=== PATIENT | female | born 1990 | race Caucasian/White ===

== ENCOUNTER 2016-11-13 08:52 | Inpatient (IN) | payer OTHER ==
--- NOTE | ~2016-11-13 | OR ---
Unit #: [id number] #: [id number] Patient: JAMIE LANDEROS [id number] [address] [address] [id number] I MR#: [id number] NAME: JAMIE LANDEROS ROOM: [facility] Date of Procedure: 11/13/2016 Admission Date: 11/13/2016 Surgeon: Brandi Callahan M.D. : 1990 Attending Physician: Luz Gee M.D. Primary Care Physician: No Primary Care Physician PROCEDURE OPERATIVE NOTE PROCEDURE PERFORMED Right subclavian central venous catheter placement. INDICATION Shock. DETAILS OF THE PROCEDURE After preparing the patient with the ChloraPrep in a sterile (1) fashion, a triple lumen central venous catheter inserted in the right subclavian vein with modified Seldinger technique. Guidewire was removed. In total, all three ports were flushed and working. No complication happened. Dictated by... Maria Luisa Cortez/baljinder TD: 11/13/2016 17:38 JOB #: [id number] PROCEDURE OPERATIVE NOTE Page 1 of 1 X Brandi Callahan MD X PROCEDURE OPERATIVE NOTE
--- NOTE | ~2016-11-13 | CR7 ---
[facility] A Service of [facility] & [facility] RADIOLOGY TEXT RESULTS PATIENT: JAMIE LANDEROS LOCATION: [address] : [birth year] UNIT #: [id number] AGE: [address]: Luz Gee MD SEX: F ORDER DR: [id number] [facility] [address] [facility]. [place], [place] [address] [id number] I MR#: [id number] Acc #: [id number] NAME: JAMIE LANDEROS : 1990 SEX: F STUDY DATE/TIME: 11/16/2016 13:05 UNIT: [facility] ROOM: [facility] STUDY DESCRIPTION: CR Abdomen Single AP View Attending Physician: Lzu Gee M.D. Ordering Physician: Brandi Callahan M.D. Primary Care Physician: Primary Care Physician No MEDICAL IMAGING REPORT This report is preliminary unless electronic signature is present EXAM Portable KUB HISTORY Dobbhoff tube placed. TECHNIQUE A single view of the abdomen was obtained. FINDINGS The Dobbhoff tube seen with tip in good position. The upper to mid stomach. Bowel gas pattern is normal STAT * RESULT Dictated by... Fidel Mojica M.D. THIS IS AN ELECTRONICALLY VERIFIED REPORT Fidel Mojica M.D. at 11/16/2016 5:02 PM AURORA/shelly TD: 11/16/2016 13:48 JOB #: [id number] MEDICAL IMAGING REPORT Page 1 of 1 COPY
--- NOTE | ~2016-11-13 | OR ---
Unit #: [id number] #: [id number] Patient: JAMIE LANDEROS [id number] [address] [address] [id number] I MR#: [id number] NAME: JAMIE LANDEROS ROOM: [facility] Date of Procedure: 11/15/2016 Admission Date: 11/13/2016 Surgeon: Brandi Callahan M.D. : 1990 Attending Physician: Luz Gee M.D. PROCEDURE OPERATIVE NOTE PROCEDURE PERFORMED Bronchoscopy and bronchoalveolar lavage. INDICATION Pneumonia. PREPROCEDURE DIAGNOSIS Pneumonia. POSTPROCEDURE DIAGNOSIS Pneumonia. DETAILS OF THE PROCEDURE After taking consent from the patient's family and explaining the risks and benefits, patient was placed in a proper position. The bronchoscope was introduced through the endotracheal tube which was sitting well above the edwin. We examined the right upper, right middle, right lower lobe, left upper lobe, lingula, and left lower lobe. No endobronchial lesion was found. There were thick mucoid secretions in both lungs which were therapeutically suctioned. Then, we did a bronchoalveolar lavage in the right lower lobe area with 100 mL saline in and 20 mL retrieved. Patient tolerated the procedure very well. No complication happened. Dictated by... Maria Luisa Cortez TD: 11/15/2016 15:13 JOB #: [id number] PROCEDURE OPERATIVE NOTE Page 1 of 1 X Barndi Callahan MD X PROCEDURE OPERATIVE NOTE
--- NOTE | ~2016-11-13 | CR72 ---
[facility] A Service of [facility] RADIOLOGY TEXT RESULTS PATIENT: JAMIE LANDEROS [facility] [birth year] UNIT #: [id number] AGE: [address]: Luz Gee MD SEX: F ORDER DR: [id number] [facility] [address] [place], [place] [address] [id number] I MR#: [id number] Acc #: [id number] NAME: JAMIE LANDEROS : 1990 SEX: F STUDY DATE/TIME: 11/14/2016 23:07 UNIT: [facility] ROOM: [facility] STUDY DESCRIPTION: CR Chest Single View Portable Attending Physician: Luz Gee M.D. Ordering Physician: Luz Gee M.D. Primary Care Physician: Primary Care Physician No MEDICAL IMAGING REPORT This report is preliminary unless electronic signature is present EXAM AP portable chest, 11/14/2016 (2307 hours) HISTORY Respiratory failure. Endotracheal tube placement. TECHNIQUE AP portable chest x-ray. FINDINGS Newly placed endotracheal tube tip is in good position in the mid thoracic trachea about 4.4 cm above the edwin. Right subclavian central line tip in the low SVC. Very dense diffuse alveolar opacity throughout both lungs suggesting diffuse pneumonitis, pulmonary edema and/or ARDS. A right chest tube is in place, but the side hole appears extrathoracic. No visible pneumothorax. Soft tissue emphysema in the right chest wall. Median sternotomy. IMPRESSION 1. ETT in good position. 2. Partially withdrawn right chest tube. No visible pneumothorax. 3. Dense diffuse airspace opacity throughout both lungs. STAT * RESULT Dictated by... Jay Hamilton M.D. [facility] A Service of [facility] RADIOLOGY TEXT RESULTS PATIENT: JAMIE LANDEROS [facility]ATION: [facility] [birth year] UNIT #: [id number] AGE: [address]: Luz Gee MD SEX: F ORDER DR: THIS IS AN ELECTRONICALLY VERIFIED REPORT Jay Hamilton M.D. at 11/15/2016 4:05 AM Perla TD: 11/14/2016 23:32 JOB #: [id number] MEDICAL IMAGING REPORT Page 1 of 1 COPY
--- NOTE | ~2016-11-13 | US80 ---
[facility] A Service of [facility] RADIOLOGY TEXT RESULTS PATIENT: JAMIE LANDEROS LOCATION: [facility] : [birth year] UNIT #: [id number] AGE: [address]: Luz Gee MD SEX: F ORDER DR: [id number] [place], [place] [address] [id number] I MR#: [id number] Acc #: [id number] NAME: JAMIE LANDEROS : 1990 SEX: F STUDY DATE/TIME: 11/16/2016 18:26 [facility]: [facility] STUDY DESCRIPTION: US Kidney Unilateral Complete Attending Physician: Luz Gee M.D. Ordering Physician: Luz Gee M.D. Primary Care Physician: No Primary Care Physician MEDICAL IMAGING REPORT This report is preliminary unless electronic signature is present EXAM Renal ultrasound, bilateral. DATE OF EXAM 11/16/2016 INDICATIONS Low urine output. Acute renal injury. BUN 38, creatinine 1.4, GFR 52, overdose patient. TECHNIQUE Sonographic imaging of the kidneys was performed bilaterally. COMPARISON No comparisons. FINDINGS There is free fluid adjacent to the right kidney and tracking into the pelvis. The right kidney measures 11.2 x 4.4 x 5.0 cm and the left kidney 11.4 x 5.7 x 5.1 cm. There is no hydronephrosis on either side. No shadowing stones. Bladder decompressed by Che catheter. IMPRESSION 1. No hydronephrosis or shadowing stone on either side. 2. Ascites in the right upper quadrant and tracking into the pelvis. 3. Bladder decompressed by Che catheter. Dictated by... Jim Branham M.D. THIS IS AN ELECTRONICALLY VERIFIED REPORT Jim Branham M.D. at 11/16/2016 10:52 PM [facility] A Service [facility] RADIOLOGY TEXT RESULTS PATIENT: JAMIE LANDEROS LOCATION: [facility]-20 : [birth year] UNIT #: [id number] AGE: [address]: Luz Gee MD SEX: F ORDER DR: SHERRI/yulia TD: 11/16/2016 22:46 JOB #: [id number] MEDICAL IMAGING REPORT Page 1 of 1 COPY
--- NOTE | ~2016-11-13 | CR72 ---
[facility] A Service of [facility] RADIOLOGY TEXT RESULTS PATIENT: JAMIE LANDEROS LOCATION: [facility] [birth year] UNIT #: [id number] AGE: [address]: Luz Gee MD SEX: F ORDER DR: [id number] [id number] [place], [place] [address] [id number] I MR#: [id number] Acc #: [id number] NAME: JAMIE LANDEROS : 1990 SEX: F STUDY DATE/TIME: 11/15/2016 3:01 UNIT: [facility] ROOM: [facility] STUDY DESCRIPTION: CR Chest Single View Portable Attending Physician: Luz Gee M.D. Ordering Physician: Brandi Callahan M.D. Primary Care Physician: Primary Care Physician No MEDICAL IMAGING REPORT This report is preliminary unless electronic signature is present EXAM AP portable chest, 11/15/2016 HISTORY Respiratory failure. Follow up cardiopulmonary status. TECHNIQUE AP portable chest x-ray. FINDINGS Tip of the right chest tube has withdrawn from the thorax and is now positioned in the soft tissues of the right lateral chest wall. No visible pneumothorax. Very dense diffuse interstitial and alveolar opacity throughout both lungs may represent pulmonary edema, diffuse pneumonitis and/or ARDS. This is unchanged. Endotracheal tube and right subclavian central line remain in good position. IMPRESSION 1. Right side chest tube within the right chest wall. No pneumothorax. 2. No significant change since yesterday. STAT * RESULT Dictated by... Jay Hamilton M.D. [facility] A Service of [facility] RADIOLOGY TEXT RESULTS PATIENT: JAMIE LANDEROS LOCATION: [facility] [birth year] UNIT #: [id number] AGE: [address]: Luz Gee MD SEX: F ORDER DR: THIS IS AN ELECTRONICALLY VERIFIED REPORT Jay Hamilton M.D. at 11/15/2016 4:05 AM SHARI/leisa TD: 11/15/2016 03:45 JOB #: [id number] MEDICAL IMAGING REPORT Page 1 of 1 COPY
--- NOTE | ~2016-11-13 | CR72 ---
[facility] A Service of [facility] & [facility] RADIOLOGY TEXT RESULTS PATIENT: JAMIE LANDEROS LOCATION: [address] : [birth year] UNIT #: [id number] AGE: [address]: Luz Gee MD SEX: F ORDER DR: [id number] [facility] [address] [facility]. [place], [place] [address] [id number] I MR#: [id number] Acc #: [id number] NAME: JAMIE LANDEROS : 1990 SEX: F STUDY DATE/TIME: 11/13/2016 15:31 UNIT: [facility] ROOM: [facility] STUDY DESCRIPTION: CR Chest Single View Portable Attending Physician: Luz Gee M.D. Ordering Physician: Brandi Callahan M.D. MEDICAL IMAGING REPORT This report is preliminary unless electronic signature is present EXAM Portable chest HISTORY Acute respiratory failure, shortness of air, drug overdose today. FINDINGS Right chest tube has been placed since earlier today with its tip overlying the right mid-lung. Small right pneumothorax has decreased, now measuring close to 10%. Extensive bilateral pulmonary infiltrates are stable. New smin-np-arrdscsd right chest wall soft tissue emphysema. Remainder of the chest is stable. Dictated by... Eduardo Nunez M.D. THIS IS AN ELECTRONICALLY VERIFIED REPORT Eduardo Nunez M.D. at 11/13/2016 11:12 PM DFL/pcl TD: 11/13/2016 19:17 JOB #: [id number] MEDICAL IMAGING REPORT Page 1 of 1 COPY
--- NOTE | ~2016-11-13 | EKG ---
PATIENT: JAMIE LANDEROS UNIT #: [id number] Ventricular Rate: 119 BPM Atrial Rate: 119 BPM P-R Interval: 120 ms QRS Duration: 88 ms Q-T Interval: 438 ms QTC Calculation(Bezet): 616 ms P [place]: 70 degrees Calculated R [place]: 64 degrees Calculated T [place]: 79 degrees Diagnosis Line: Sinus tachycardia Diagnosis Line: Indeterminate axis Diagnosis Line: Low voltage QRS Diagnosis Line: RSR' or QR pattern in V1 suggests right Diagnosis Line: ventricular conduction delay Diagnosis Line: Nonspecific ST and T wave abnormality Prolonged QT Diagnosis Line: Abnormal ECG Diagnosis Line: When compared with ECG of 13-NOV-2016 06:34, Diagnosis Line: T wave inversion now evident in Lateral leads Diagnosis Line: Nonspecific ST and T wave abnormality is now Diagnosis Line: Present Diagnosis Line: Confirmed by DESHAWN SANCHES MD ([id number]) on 11/15/2016 Diagnosis Line: 10:17:28 PM INTERPRETING MD: MYRON MARTELL
--- NOTE | ~2016-11-13 | CT16 ---
[facility] A Service of [facility] & [facility] RADIOLOGY TEXT RESULTS PATIENT: JAMIE LANDEROS LOCATION: [facility] [address]-52 : [birth year] UNIT #: [id number] AGE: [address]: Luz Gee MD SEX: F ORDER DR: [id number] [facility] [address] [place], [place] [address] [id number] E MR#: [id number] Acc #: [id number] NAME: JAMIE LANDEROS : 1990 SEX: F STUDY DATE/TIME: 11/13/2016 8:29 UNIT: [facility] ROOM: STUDY DESCRIPTION: CT Angio Chest for PE Attending Physician: Hector Aden Ordering Physician: Hector Aden, [id number] Primary Care Physician: Primary Care Physician No MEDICAL IMAGING REPORT This report is preliminary unless electronic signature is present EXAM Chest CTA 11/13 INDICATIONS Ventilator patient. Chest tightness, shortness of air. Heroin overdose today. Abnormal chest x-ray. TECHNIQUE Axial images were obtained through the chest following IV contrast administration. 3-D reformats were obtained. No comparison CT. This CT exam was performed with one or more of the following radiation dose reduction techniques: automatic exposure control, adjustment of mA and/or kV according to patient size, and iterative reconstruction. FINDINGS There is no pulmonary embolism or aortic dissection. The heart is enlarged. Patient is status post mitral and tricuspid valve surgery. Endotracheal tube is well positioned. No pericardial effusion. There is a small right pleural effusion and there is a trace left pleural effusion. Extensive bilateral infiltrates with air bronchograms likely reflecting diffuse pneumonia. Aspiration is not excluded. There is some underlying septal thickening and ground-glass which also probably reflects edema. Upper abdomen suggests some fatty infiltration of the liver. There is a hypervascular lesion in the lateral segment left hepatic lobe measuring about 6 mm in size. This appears to be the associated with the hepatic artery branch in the left lobe. This could reflect a pseudoaneurysm or AVM. This could be further assessed with non emergent multiphase liver CT. IMPRESSION 1. No pulmonary embolism or aortic dissection. 2. Extensive bilateral infiltrates which predominately reflect pneumonia. Aspiration not excluded. There is a background of mild STS. [facility] A Service of [facility] & [facility] RADIOLOGY TEXT RESULTS PATIENT: JAMIE LANDEROS LOCATION: [facility] [address]-46 : 90 UNIT #: [id number] AGE: [address]: Luz Gee MD SEX: F ORDER DR: pulmonary edema suspected as well. 3. Small effusions right greater than left. 4. Cardiomegaly status post valve surgery. 5. Hypervascular lesion in the left hepatic lobe appears to be associated with hepatic artery branch. This could reflect an AVM or pseudoaneurysm. Non emergent followup with multiphase contrast-enhanced liver CT is suggested. 6. Well-positioned ET tube. Dictated by... Fidel Lindquist Jr., M.D. THIS IS AN ELECTRONICALLY VERIFIED REPORT Fidel Lindquist Jr., M.D. at 11/13/2016 10:01 AM RANDAL/kun TD: 11/13/2016 09:38 JOB #: [id number] MEDICAL IMAGING REPORT Page 1 of 1 COPY
--- NOTE | ~2016-11-13 | CR72 ---
[facility] A Service of [facility] & [facility] RADIOLOGY TEXT RESULTS PATIENT: JAMIE LANDEROS LOCATION: [facility] [address]-22 : [birth year] UNIT #: [id number] AGE: [address]: Luz Gee MD SEX: F ORDER DR: [id number] [facility] [address] [place], [place] [address] [id number] E MR#: [id number] Acc #: [id number] NAME: JAMIE LANDEROS : 1990 SEX: F STUDY DATE/TIME: 11/13/2016 9:33 UNIT: [facility] ROOM: STUDY DESCRIPTION: CR Chest Single View Portable Attending Physician: Hector Aden Ordering Physician: Ed Doctor [id number] [facility] Primary Care Physician: Primary Care Physician No MEDICAL IMAGING REPORT This report is preliminary unless electronic signature is present EXAM Portable chest 11/13 INDICATIONS Shortness of air. Line placement. Overdose today. FINDINGS AP portable chest is compared with earlier this morning. New right-side central venous catheter tip is at the cavoatrial junction. There is a new small to moderate right pneumothorax. Bilateral infiltrates are relatively stable. No left-side pneumothorax. ET tube lower trachea in good position. Findings have been discussed directly with Dr. Aden in the emergency room at the time of this dictation. Dictated by... Fidel Lindquist Jr., M.D. THIS IS AN ELECTRONICALLY VERIFIED REPORT Fidel Lindquist Jr., M.D. at 11/13/2016 10:01 AM RANDAL/kun TD: 11/13/2016 09:59 JOB #: [id number] MEDICAL IMAGING REPORT Page 1 of 1 COPY
--- NOTE | ~2016-11-13 | CR72 ---
[facility] A Service of [facility] & [facility] RADIOLOGY TEXT RESULTS PATIENT: JAMIE LANDEROS LOCATION: [address] : [birth year] UNIT #: [id number] AGE: [address]: Luz Gee MD SEX: F ORDER DR: [id number] [facility] [address] [place], [place] [address] [id number] I MR#: [id number] Acc #: [id number] NAME: JAMIE LANDEROS : 1990 SEX: F STUDY DATE/TIME: 11/16/2016 13:06 UNIT: [facility] ROOM: [facility] STUDY DESCRIPTION: CR Chest Single View Portable Attending Physician: Luz Gee M.D. Ordering Physician: Brandi Callahan M.D. Primary Care Physician: No Primary Care Physician MEDICAL IMAGING REPORT This report is preliminary unless electronic signature is present EXAM Portable AP view of the chest. COMPARISON November 16, 2016 at 5 a.m. as well as November 15, 2016, November 14, 2016. INDICATION 26-year-old female with dyspnea today. Patient has ongoing respiratory failure requiring endotracheal intubation and ventilatory support. FINDINGS/IMPRESSION Endotracheal tube tip terminates approximately 4.9 cm above the edwin, grossly stable. There is a new feeding tube with the guide wire still in place. Tube tip terminates in the stomach. Markers of CABG are again noted. Median sternotomy wires appear intact. Cardiomediastinal silhouette is stable, likely stable cardiomegaly. Diffuse confluent and alveolar opacities throughout the lungs are grossly unchanged, perhaps reflecting ARDS, pneumonia and/or pulmonary edema. Stable small to moderate left pleural effusion. Right pleural effusion cannot be excluded. Appearance is grossly stable from earlier today. No evidence of pneumothorax. Right subclavian catheter again noted, the tip terminating in the expected location of the right atrium. Clinical correlation is recommended. 1 may consider retraction. Dictated by... Kalen Moon M.D. THIS IS AN ELECTRONICALLY VERIFIED REPORT Kalen Moon M.D. at 11/16/2016 5:48 PM ANDER/yulia [facility] A Service of [facility] & [facility] RADIOLOGY TEXT RESULTS PATIENT: JAMIE LANDEROS LOCATION: [facility]20 : [birth year] UNIT #: [id number] AGE: [address]: Luz Gee MD SEX: F ORDER DR: TD: 11/16/2016 15:25 JOB #: [id number] MEDICAL IMAGING REPORT Page 1 of 1 COPY
--- NOTE | ~2016-11-13 | A ---
[facility] Nutrition Therapy DATE: 11/15/16 Patient: JAMIE LANDEROS Physician: OC Address: [address] [address] Room/Bed: [address], Zip: [place] [address] Admit Date: 11/13/16 Date of : [birth year] Height: 5 6 Weight: 166 75.5 NUTRITIONAL ASSESSMENT: REASON: Seen due to NPO status in ICU, intubated Admitting Dx: 26 y/o female admitted with drug OD, found unresponsive PMH: DVT, endocarditis s/p valve surgery, IVDA, daily ETOH use, non-compliance Anthropometrics: Ht: 66", Wt: 75.5 kg (166 lbs), BMI: 27 (overweight) Labs: K+ 3.1, Mg 1.5, glucose/Na WNL Meds: Fentanyl, Levophed, Furosemide, Bumex, D5, Nacl, Kcl, MgSO4 I/O & Bowel function: LBM unknown Skin Integrity: Scar/bruising noted, surgical incision groin Edema: Trace RLE/LLE Estimated Nutrition Needs: 1891-8686 kcals per day (20-25 kcals/kg) 76-91 g protein per day (1.0-1.2 g/kg) Fluids consistent with kcal needs or per MD Assessment: Chart reviewed, events noted. See admitting dx and PMH as stated above. Patient has continued daily IV drug and ETOH abuse despite having endocarditis and recent valve surgery performed at [facility]. Was intubated @ [facility] last week and left AMA once extubated. The patient got a chest tube placed 11/13 due to pneumothorax and was able to be extubated, but was then reintubated last night. She got a bronch today, currently no plans in place to feed her. Although she is currently on Propofol providing 306 lipid kcals, RN states this will likely be changed to versed. See RD recs below, will follow hospital course. Dx: Inadequate protein energy intake r/t clinical condition, intubated AEB NPO, need for EN. Intervention: EN recs as stated below, K/Mg replacement, check Phos Monitoring, Evaluation and Goals: 1. EN consistent with estimated nutrition needs. [facility] Nutrition Therapy DATE: 11/15/16 Patient: JAMIE LANDEROS Physician: OC Address: [address] [place] [address] Room/Bed: [address], Zip: [place] [address] Admit Date: 11/13/16 Date of : [birth year] Height: 5 6 Weight: 166 75.5 2. Improvement in labs (K+, Mg), glucose will remain WNL. Monitor: Per protocol, criteria to determine if above goals met Recommendations: 1. Replace lytes prn (K+/Mg low). 2. Once medically feasible, if to remain intubated for > 48 hours, suggest placing DHT and starting enteral nutrition with Jevity 1.5 @ 20 ml/hr. Goal rates based on Propofol are as follows: WITH Propofol: Start @ 20 ml/hr and increase by 10 ml q 12 hours until goal rate of 40 ml/hr is reached. Please order 30 ml Prostat to be given daily per tube. This nutrition regimen + kcals from Propofol will provide 1846 kcals, 76 g protein and 730 ml water. WITHOUT Propofol: Start @ 20 ml/hr and increase by 10 ml q 12 hours until goal rate of 50 ml/hr is reached, to provide 1800 kcals, 77 g protein and 912 ml water. Free water flushes per MD once at goal rate; suggest 225 ml QID *Patient is at risk for refeeding syndrome due to ETOH/drug abuse, closely monitor lytes and glucose, replete lytes to WNL prn. 3. If extubated advance to regular diet as tolerated. Suggest TOUCH UP EDGER eval if intubated for > [address] will follow hospital course Moderate-severe nutrition risk Respectfully, Amanda Wallace, RD, LD Food and Nutritional Services [facility] cc: client file
--- NOTE | ~2016-11-13 | CR72 ---
[facility] A Service of [facility] RADIOLOGY TEXT RESULTS PATIENT: JAMIE LANDEROS [facility] UN[facility] #: [id number] AGE: [address]: Luz Gee MD SEX: F ORDER DR: [id number] [facility] [address] [place], [place] [address] [id number] I MR#: [id number] Acc #: [id number] NAME: JAMIE LANDEROS : 1990 SEX: F STUDY DATE/TIME: 11/16/2016 5:00 UNIT: [facility] ROOM: [facility] STUDY DESCRIPTION: CR Chest Single View Portable Attending Physician: Luz Gee M.D. Ordering Physician: Luz Gee M.D. Primary Care Physician: Primary Care Physician No MEDICAL IMAGING REPORT This report is preliminary unless electronic signature is present EXAM AP portable chest 11/16/2016 HISTORY Respiratory failure. Follow up cardiopulmonary status. TECHNIQUE AP portable upright chest x-ray. FINDINGS Right chest tube has been removed since yesterday. No visible pneumothorax. Dense diffuse interstitial and airspace opacity remains present throughout both lungs without change. Cardiomegaly. Postop heart valve surgery. Endotracheal tube and right subclavian central line remain in good position. Small pleural effusions. IMPRESSION Stable portable chest radiograph without significant change since yesterday. Remaining support equipment in good position. Dictated by... Jay Hamilton M.D. THIS IS AN ELECTRONICALLY VERIFIED REPORT Jay Hamilton M.D. at 11/16/2016 9:53 PM TONIAW/shanna TD: 11/16/2016 07:14 JOB #: [id number] MEDICAL IMAGING REPORT [facility] A Service [facility] RADIOLOGY TEXT RESULTS PATIENT: JAMIE LANDEROS LOCATION: [facility] : 90 UNIT #: [id number] AGE: [address]: Luz Gee MD SEX: F ORDER DR: Page 1 of 1 COPY
--- NOTE | ~2016-11-13 | CR72 ---
[facility] A Service of [facility] RADIOLOGY TEXT RESULTS PATIENT: JAMIE LANDEROS LOCATION: [address] : [birth year] UNIT #: [id number] AGE: [address]: Luz Gee MD SEX: F ORDER DR: [id number] [facility] [address] [facility]. [place], [place] [address] [id number] I MR#: [id number] Acc #: [id number] NAME: JAMIE LANDEROS : 1990 SEX: F STUDY DATE/TIME: 11/14/2016 7:12 UNIT: [facility] ROOM: [facility] STUDY DESCRIPTION: CR Chest Single View Portable Attending Physician: Luz Gee M.D. Ordering Physician: Luz Gee M.D. Primary Care Physician: Primary Care Physician No MEDICAL IMAGING REPORT This report is preliminary unless electronic signature is present EXAM Portable chest INDICATIONS Respiratory failure. PROCEDURE Frontal view chest. COMPARISON 11/13/2016 FINDINGS Right-sided chest tube stable. Right-sided pneumothorax significantly improved. Support and monitoring physis unchanged. Improving soft tissue emphysema along the right chest. Stable bilateral opacities. IMPRESSION The right-sided pneumothorax is improving. Otherwise stable. Dictated by... Isac Stroud M.D. THIS IS AN ELECTRONICALLY VERIFIED REPORT Isac Stroud M.D. at 11/15/2016 9:42 AM LIT/kun TD: 11/14/2016 08:30 JOB #: [id number] MEDICAL IMAGING REPORT Page 1 of 1 COPY
--- NOTE | ~2016-11-13 | DS ---
Unit #: [id number] #: [id number] Patient: JAMIE LANDEROS [id number] [address] [place], [place] [address] [id number] I MR#: [id number] NAME: JAMIE LANDEROS ROOM: [facility] Age: 26 Sex: F Admission Date: 11/13/2016 : 1990 Discharge Date: 11/17/2016 Attending Physician: Luz Gee M.D. Primary Care Physician: Primary Care Physician No DISCHARGE SUMMARY REASON FOR ADMISSION Drug overdose/unresponsiveness. HISTORY OF PRESENT ILLNESS/HOSPITAL COURSE The patient has long-standing history of heroin, IV drug abuse, with recurrent abuse, and was admitted after she was found down. 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 She was referred for a prosthetic mitral and tricuspid valve surgery. The years prior to the event she had had several episodes of infectious endocarditis at [facility]. She has had a long-standing history of IV drug abuse with recurrent hospital admissions. She was found obtunded and was given Narcan in the emergency room and later developed respiratory failure and was subsequently intubated. She was placed in the intensive care unit. Consultation was placed to cardiology and pulmonary services. She was initially hypotensive with her blood pressure approximately 47/19, she was placed on several pressors as well as IV fluids. Chest x-ray showed right pneumothorax, infiltrates. She had recently been admitted to [facility] and discharged November 10, 2016, admitted for endocarditis of the prosthetic valve, apparently, she left [facility] at that time. Through this particular hospital course, her blood cultures were found to, once again, have bacteremia. Consultation was placed to ID services. Through this hospital course she began developing urinary retention as well as decreased urine output. Consultation was subsequently placed to [facility] for further evaluation. She became gradually anuric. She had required multiple pressors. She went into complete renal failure. She became acutely hypotensive. Subsequently, MED team was called. Initiation of [employer] was discussed, please see nephrology notes for details. Unfortunately, the patient did not respond secondary to multiorgan failure, severe acidosis, severe respiratory failure, as well as endocarditis, and bacteria. The patient ultimately . FINAL DISCHARGE DIAGNOSES 1. Acute respiratory failure. 2. Multiorgan failure. Unit #: [id number] #: [id number] Patient: JAMIE LANDEROS 3. Severe acidosis. 4. Severe sepsis. 5. Fungemia. 6. 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 7. Acute kidney injury. 8. Ongoing IV drug abuse. 9. Noncompliance. 10. Recurrent hospital admissions. 11. Hypotension, on admission. 12. Prior history of deep venous thrombosis. 13. Urinary retention/anuria. Dictated by... Maria Luisa Mendoza/satinder TD: 11/25/2016 10:46 JOB #: [id number] DISCHARGE SUMMARY Page 1 of 1 X Luz Gee MD X DISCHARGE SUMMARY
--- NOTE | ~2016-11-13 | OR ---
Unit #: [id number] #: [id number] Patient: JAMIE LANDEROS [id number] [address] [address] [id number] I MR#: [id number] NAME: JAMIE LANDEROS ROOM: [facility] Date of Procedure: 11/13/2016 Admission Date: 11/13/2016 Surgeon: Brandi Callahan M.D. : 1990 Attending Physician: Luz Gee M.D. Primary Care Physician: Primary Care Physician No PROCEDURE OPERATIVE NOTE PREPROCEDURE DIAGNOSIS Pneumothorax. POSTPROCEDURE DIAGNOSIS Pneumothorax. PROCEDURE PERFORMED Chest tube placement. INDICATION Right-sided pneumothorax. DETAILS OF THE PROCEDURE After preparing the right side of the chest with ChloraPrep under all sterile fashion, a 20-Jordanian chest tube inserted after making a 3 cm incision in the fifth intercostal space and a gush of air came out with blunt dissection. Chest tube was inserted with no complication. It was secured with interrupted suture in place. Postprocedure chest x-ray was ordered. Dictated by... Maria Luisa Cortez TD: 11/13/2016 17:42 JOB #: [id number] PROCEDURE OPERATIVE NOTE Page 1 of 1 X Brandi Callahan MD PROCEDURE OPERATIVE NOTE
--- NOTE | ~2016-11-13 | CO ---
Unit #: [id number] #: [id number] Patient: JAMIE LANDEROS [id number] [address] [place], [place] [address] [id number] I MR#: [id number] NAME: JAMIE LANDEROS ROOM: [facility] Age: 26 Sex: F Admission Date: 11/13/2016 : 1990 Attending Physician: Luz Gee M.D. CONSULTATION REPORT SERVICE OF CONSULTATION Urology. REASON FOR CONSULTATION Urinary retention. REFERRING PHYSICIAN Dr. Gee. CHIEF COMPLAINT Nondraining catheter. HISTORY OF PRESENT ILLNESS A 26-year-old female, intubated and sedated in ICU for heroin overdose. She has a long history of heroin IV drug abuse with associated valve disease. She is on max dose pressors in the ICU. Che catheter has not been draining. Bladder scan showed 500 at bedside. Catheter irrigated well. Catheter placement seems to be in the bladder. False bladder scan is likely due to anasarca versus ascites. PAST MEDICAL HISTORY Reviewed in the chart and mentioned in the HPI. PAST SURGICAL HISTORY Valve repair. SOCIAL HISTORY IV drug abuse. FAMILY HISTORY Unable to obtain as the patient is intubated and sedated. ALLERGIES No known drug allergies. HOME MEDICATIONS None. REVIEW OF SYSTEMS Did not perform as the patient is intubated and sedated in the ICU. PHYSICAL EXAMINATION Intubated with ET tube in place. Che catheter with scant urine output. Digital vaginal exam confirms that the catheter was in urethra and then Unit #: [id number] #: [id number] Patient: JAMIE LANDEROS bladder. Catheter irrigated at bedside with return of clear yellow urine. Abdomen is mildly distended. DIAGNOSTIC STUDIES LABORATORY RESULTS: Reviewed in the chart. Creatinine is 1.4, which is slowly rising while on pressors. ASSESSMENT Oliguria. PLAN Catheter seems to be in good position. We will get renal ultrasound to confirm no hydronephrosis as the etiology of her oliguria, like etiology is acute illness, multiorgan failure shock on max dose of pressors. We will sign off if no hydronephrosis on renal ultrasound. Continue supportive care in the ICU. Re-consult Urology if further issues with catheter. Likely etiology of low urine output is prerenal or intrarenal. Dictated by... Maria Luisa Marie TD: 11/17/2016 05:28 JOB #: [id number] CONSULTATION REPORT Page 1 of 1 X EDWARD MAYFIELD MD X CONSULTATION REPORT
--- NOTE | ~2016-11-13 | CR72 ---
[facility] A Service of [facility] RADIOLOGY TEXT RESULTS PATIENT: JAMIE LANDEROS [facility]ATION[facility] [birth year] UNIT #: [id number] AGE: [address]: Luz Gee MD SEX: F ORDER DR: [id number] [place], [place] [address] [id number] I MR#: [id number] Acc #: [id number] NAME: JAMIE LANDEROS : 1990 SEX: F STUDY DATE/TIME: 11/16/2016 21:32 UNIT: [facility] ROOM: [facility] STUDY DESCRIPTION: CR Chest Single View Portable Attending Physician: Luz Gee M.D. Ordering Physician: Brandi Callahan M.D. MEDICAL IMAGING REPORT This report is preliminary unless electronic signature is present EXAM Frontal chest 11/16/2016 INDICATIONS 26-year-old female for line placement, overdose. Ventilator patient. Respiratory failure. TECHNIQUE Frontal chest. COMPARISON STUDIES 1306 hours. FINDINGS ET tube tip in good position above the edwin. Enteric tube tip at the level of the stomach. There is a central line from a right-sided approach that is unchanged. There is a new central line from the left neck approach terminating at the [id number]-zb-czg SVC level. There is no pneumothorax. Cardiac silhouette enlarged. Extensive interstitial and alveolar infiltrates bilaterally, not significantly changed for technical factors. Probable trace effusions. IMPRESSION 1. Tubes and lines appear to be in satisfactory position. No pneumothorax. New central line from a left neck approach terminates at the scwgrjri-nh-dus SVC level. 2. Extensive interstitial and alveolar infiltrates bilaterally, not significantly changed. Dictated by... [facility] A Service [facility] RADIOLOGY TEXT RESULTS PATIENT: JAMIE LANDEROS [facility] [birth year] UNIT #: [id number] AGE: [address]: Luz Gee MD SEX: F ORDER DR: Jim Branham M.D. THIS IS AN ELECTRONICALLY VERIFIED REPORT Jim Branham M.D. at 11/17/2016 10:35 AM SHERRI/vishal TD: 11/16/2016 23:19 JOB #: [id number] MEDICAL IMAGING REPORT Page 1 of 1 COPY
--- NOTE | ~2016-11-13 | CO ---
Unit #: [id number] #: [id number] Patient: JAMIE LANDEROS [id number] [facility]. [place], [place] [address] [id number] I MR#: [id number] NAME: JAMIE LANDEROS ROOM: [facility] Age: 26 Sex: F Admission Date: 11/13/2016 : 1990 Attending Physician: Luz Gee M.D. Primary Care Physician: No Primary Care Physician CONSULTATION REPORT REASON FOR CONSULTATION Infectious endocarditis. HISTORY OF PRESENT ILLNESS This is a 26-year-old white female who is known to have endocarditis at least twice in the past. 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 She was referred for prosthetic mitral and tricuspid valve surgery. The years prior to this event she had infectious endocarditis while at [facility]. The patient is readmitted with cough, shortness of breath and evidence of recurrent prosthetic valve endocarditis of at least the mitral and questionable tricuspid valve. She was obtunded and was given Narcan in the emergency room, but later developed respiratory failure and was subsequently intubated. She is in the intensive care unit being weaned from the ventilator. She is awake and alert, but unable to provide a history. She has been started on IV antibiotics. She was hypotensive in the emergency room with blood pressure as low as 47/19 mmHg. However, blood pressure is currently stable. Chest x-ray shows right pneumothorax and bilateral infiltrates. White count elevated at 13.5, previously 25.8. The patient was in [facility], discharged 11/10/2016, when she was admitted with endocarditis of the prosthetic mitral valve. The patient complained of shortness of breath and leg pain. She apparently was on Coumadin because of peripheral septal emboli. She apparently stopped taking Coumadin six months prior because she ran out of the medication. Blood cultures found her to have bacteremia with strep parafangious that was sensitive to ceftriaxone and gentamicin. She was started on IV antibiotics. She was supposed to continue the ceftriaxone 2 g q.4 h. and was to stop 12/13/2016. Gentamicin was to be continued until 11/16/2016. There was evidence of septic emboli in the left lower extremity. She had an MRI of her brain to evaluate for septal emboli, which showed potentially new lesions. She was discharged home on Coumadin. According to the dictations, the patient was to complete outpatient antibiotics and follow up with cardiology. DON was done per Dr. Wilder on 11/01/2016, which showed vegetation in the prosthetic mitral valve. PAST MEDICAL HISTORY 1. Two-dimensional echocardiogram 11/13/2016 shows an ejection fraction of 50%-55% with right ventricular volume overload. Mildly dilated left atrium. Severely enlarged right atrium. Moderately enlarged right ventricle cavity. Right ventricular systolic pressure 75 mmHg, consistent with severe pulmonary hypertension. Bioprosthetic mitral valve with associated echogenic densities in the mitral valve Unit #: [id number] #: [id number] Patient: LANDEROS,JAMIE leaflets, consistent with vegetations. Mild mitral regurgitation. Bioprosthetic tricuspid valve with thickening leaves. Immobile echogenic density associated with the valve that may represent vegetations. Mild tricuspid regurgitation. 2. History of bioprosthetic mitral and tricuspid valve replacement. 3. IV drug use. 4. Active smoker. PAST SURGICAL HISTORY As stated above. SOCIAL HISTORY The patient has a 9-year-old son. According to the records, she has smoked a pack of cigarettes a day since age 13. She admits to using IV heroin. FAMILY HISTORY Noncontributory. ALLERGIES No known drug allergies. HOME MEDICATIONS No current medications. REVIEW OF SYSTEMS Unable to obtain because the patient is currently intubated. PHYSICAL EXAMINATION GENERAL: This is a young 26-year-old white female who is currently intubated but awake and alert. She is in no acute distress. VITALS: Blood pressure 96/66, heart rate 96, temperature 98.7. NECK: Trachea midline. No thyromegaly on lymphadenopathy. No jugular venous distension. LUNGS: scattered rhonchi and fine rales in the lung bases. HEART: S1 and S2. Heart sounds are normal. No murmurs, rubs or clicks. Regular rate and rhythm. ABDOMEN: Soft and nontender with bowel sounds present. EXTREMITIES: Without leg edema. SKIN: Warm and dry. DIAGNOSTIC STUDIES IMAGING: Chest x-ray shows bilateral infiltrates. Right-sided pneumothorax. LABORATORY: Glucose 154, BUN 15, creatinine 0.4, sodium 136, potassium 3.0. AST 506, ALT 223, pro time 23.4, INR 2.2, troponin less 0.05, white blood cell count 13.5, hemoglobin 9.0, hematocrit 27.9, platelets 136. CARDIOVASCULAR: Electrocardiogram shows normal sinus rhythm with low voltage QRS and right ventricular hypertrophy. ASSESSMENT 1. Acute hypoxic respiratory failure. 2. Bilateral infiltrates. 3. Recurrent prosthetic mitral valve and questionable tricuspid valve endocarditis. 4. (1) resolved. 5. Right-sided pneumothorax. Unit #: [id number] #: [id number] Patient: JAMIE LANDEROS 6. Recurrent IV drug use. PLAN 1. Cardiology was consulted for infectious endocarditis. Will continue IV antibiotics. 2. Will start low-dose diuretics if blood pressure tolerates for predominantly right-sided fluid overload. 3. Will not be a candidate for repeat surgery unless she demonstrates she will be drug free. 4. Repeat electrocardiogram in the a.m. 5. Will follow the patient with you. Thank you for allowing us to assist with this patient's care. Dictated by... Lionel York A.P.R.N. for S. Maria Luisa Valdes/zeenat TD: 11/16/2016 07:59 JOB #: [id number] CC: [facility] CONSULTATION REPORT Page 1 of 1 X Lionel York APRN X CONSULTATION REPORT
--- NOTE | ~2016-11-13 | CR72 ---
[facility] A Service of [facility] RADIOLOGY TEXT RESULTS PATIENT: JAMIE LANDEROS LOCATION: [address] : [birth year] UNIT #: [id number] AGE: [address]: Luz Gee MD SEX: F ORDER DR: [id number] [place], [place] [address] [id number] I MR#: [id number] Acc #: [id number] NAME: JAMIE LANDEROS : 1990 SEX: F STUDY DATE/TIME: 11/14/2016 14:29 UNIT: [facility] ROOM: [facility] STUDY DESCRIPTION: CR Chest Single View Portable Attending Physician: Luz Gee M.D. Ordering Physician: Brandi Callahan M.D. MEDICAL IMAGING REPORT This report is preliminary unless electronic signature is present EXAM Portable chest INDICATIONS Status post extubation. Followup. TECHNIQUE Frontal view chest. COMPARISON STUDIES 11/14/2016 at 0712 hours. FINDINGS Interval extubation. Other support monitoring devices are unchanged. Persistent bilateral opacity. No pneumothorax. IMPRESSION Interval extubation. Otherwise, stable. Dictated by... Isac Stroud M.D. THIS IS AN ELECTRONICALLY VERIFIED REPORT Isac Stroud M.D. at 11/15/2016 9:43 AM EED/pcl TD: 11/14/2016 16:45 JOB #: [id number] MEDICAL IMAGING REPORT [facility] A Service of [facility] RADIOLOGY TEXT RESULTS PATIENT: JAMIE LANDEROS LOCATION: [address] : [birth year] UNIT #: [id number] AGE: [address]: Luz Gee MD SEX: F ORDER DR: Page 1 of 1 COPY
--- NOTE | ~2016-11-13 | CO ---
Unit #: [id number] #: [id number] Patient: JAMIE PEACOCK [id number] [address] [place], [place] [address] [id number] I MR#: [id number] NAME: JAMIE PEACOCK ROOM: CIC3 Age: 26 Sex: F Admission Date: 11/13/2016 : 1990 Attending Physician: Luz Gee M.D. Primary Care Physician: Tiffany Primary Care Physician Consultation Date: 11/16/2016 CONSULTATION REPORT REASON FOR CONSULT Renal failure. HISTORY OF PRESENT ILLNESS Thank you very much for asking me to see this patient in consultation. Jamie Peacock is a 26-year-old female who has a history of endocarditis in the past with septic emboli in 2016, status post valve replacements in the past. She was at [facility], where she was discharged on the . She had again mitral valve endocarditis with a prosthetic valve as well as septic emboli. She also noted to have apparently an arterial thrombus in her right lower leg and apparently underwent a thrombectomy. She was discharged and presented here on 11/13/2016 with decreased mental status, shortness of breath, etc. Subsequently she was intubated and was diagnosed with aspiration pneumonia versus community acquired pneumonia on top of her endocarditis. The patient has continued over the last year as well as even when she left the hospital, according to the notes, using IV heroin. The patient currently is unresponsive. Earlier today her urine output dropped off to be aneuric. At 2 p.m. today her labs were done, that showed potassium was up to 5.2, bicarb 16, BUN 38, creatinine 1.4. Her ABG had pH down to 7.239, pCO2 34. She was also started on multiple pressors with blood pressure around the 90s currently. Since here she has had one out of two blood cultures growing out yeast and she has been started on micafungin. She has had decreased response. The family is at the bedside. PAST MEDICAL HISTORY 1. History of endocarditis. 2. Septic emboli, status post valve replacement. 3. History of DVT in the past. 4. History of thrombectomy in the past. 5. History of IV heroin use. SOCIAL HISTORY IV drug use. Positive smoker. Positive ETOH. FAMILY HISTORY Noncontributory. ALLERGIES No known drug allergies. CURRENT MEDICATIONS 1. Bumex 2 mg IV q.8 h. Unit #: [id number] #: [id number] Patient: JAMIE PEACOCK 2. Micafungin. 3. Levophed drip. 4. Erasmo drip. 5. Zosyn. REVIEW OF SYSTEMS Unable to obtain at this time. PHYSICAL EXAMINATION GENERAL: Unresponsive, intubated. VITALS: T-max 100.4, pulse 120s-130s, blood pressure 102/46. She has had 7 liters in and it says 1835 out, but today she has had almost no urine output. HEENT: Normocephalic, atraumatic. Pupils are equal and reactive to light. She is orally intubated. NECK: Supple. No lymphadenopathy. LUNGS: Bilateral rhonchi throughout. HEART: Tachycardic without rub. ABDOMEN: Bowel sounds positive. Soft. No body edema. EXTREMITIES: She is mottling in her lower legs and no lower extremity swelling. Decreased pulses bilaterally. She has robles in her left groin area from her thrombectomy still. No erythema there. SKIN: No acute rashes. : Che catheter is in place. DIAGNOSTIC STUDIES IMAGING: CT scan on 11/13/2016 of the chest with contrast that showed no PE. LABORATORY: ABG showed pH 7.239, pCO2 34, pO2 108. Hemoglobin 10, white blood cell count 21,000, platelets 145,000, sodium 136, potassium 5.2, chloride 94, bicarb 16, BUN 38, creatinine 1.4, albumin 2.1, bilirubin worsening up to 9.1. Liver function tests are worsening. Blood culture here is 1 out of 2 yeast. ASSESSMENT 1. Acute kidney injury. This is a lady who has acute renal failure, most likely a combination of sepsis from probably fungemia as well as potential contrast induced renal failure as well as ATN from hypotension, etc. Certainly I think the patient is going to continue to worsen, including worsening acidosis, hyperkalemia, etc. I had a long discussion with the family, including the father who apparently makes her decisions, about poor prognosis, although I do think that if we are to have any chance to save her we need to put her over on CRRT to correct her electrolytes, any fluid load, etc. Will plan on starting CRRT tonight. Again, I have discussed the risks versus benefits, etc. 2. Severe acidosis. Again, worsening secondary to renal failure, hypotension, etc. Again, start CRRT will correct it. She is on a bicarb drip now and once CRRT starts we will discontinue that. 3. Fungemia. 4. Severe respiratory failure. Questionable developing ARDS versus other. Dictated by..Melvin Lynne M.D. Unit #: [id number] #: [id number] Patient: JAMIE PEACOCK WAD/gz TD: 11/17/2016 10:27 JOB #: [id number] CONSULTATION REPORT Page 1 of 1 X Vamshi Lynne MD X CONSULTATION REPORT
--- NOTE | ~2016-11-13 | CR72 ---
[facility] A Service of [facility] RADIOLOGY TEXT RESULTS PATIENT: JAMIE LANDEROS LOCATION: [employer] : [birth year] UNIT #: [id number] AGE: [address]: Hector Aden MD SEX: F ORDER DR: [id number] [facility] [address] [place], [place] [address] [id number] MR#: [id number] Acc #: [id number] NAME: JAMIE LANDEROS : 1990 SEX: F STUDY DATE/TIME: 11/13/2016 5:52 UNIT: [facility] [facility] ROOM: STUDY DESCRIPTION: CR Chest Single View Portable Attending Physician: Hector Aden Ordering Physician: Murphy Hernandez M.D. Primary Care Physician: Primary Care Physician No MEDICAL IMAGING REPORT This report is preliminary unless electronic signature is present EXAM Portable chest 11/13 INDICATIONS Shortness of air and congestion tonight. Overdose. FINDINGS AP portable chest compared 12/12/2015. Heart is enlarged status post sternotomy. There is a small right pleural effusion. There are extensive bilateral infiltrates with mid lung predominance. She may reflect florid pulmonary edema or pneumonia/aspiration or combination of all of these. No pneumothorax. IMPRESSION Stable cardiomegaly status post sternotomy. Bilateral infiltrates are certainly concerning for florid pulmonary edema and/or aspiration/pneumonia. There is a small right pleural effusion. No pneumothorax. Dictated by... Fidel Lindquist Jr., M.D. THIS IS AN ELECTRONICALLY VERIFIED REPORT Fidel Lindquist Jr., M.D. at 11/13/2016 10:00 AM RANDAL/kun TD: 11/13/2016 07:04 JOB #: [id number] MEDICAL IMAGING REPORT Page 1 of 1 COPY
--- NOTE | ~2016-11-13 | HP ---
Unit #: [id number] #: [id number] Patient: JAMIE LANDEROS [id number] [address] [address] [id number] George MR#: [id number] NAME: JAMIE LANDEROS ROOM: [facility] Age: 26 Sex: F Admission Date: 11/13/2016 : 1990 Attending Physician: Luz Gee M.D. Primary Care Physician: No Primary Care Physician HISTORY AND PHYSICAL REASON FOR ADMISSION Drug overdose/unresponsive. HISTORY OF PRESENT ILLNESS The patient currently is intubated and sedated. There are no current family members who are present at bedside. Therefore, I elicited the majority of this history after chart review. Apparently, the patient has a longstanding history of heroin/IV drug abuse. She was found in obtunded, unresponsive state with decreased mental status by a friend. Subsequently, EMS was called. The patient was brought to the hospital. While she was here, she received Narcan. Subsequently, she became quite agitated. Airway was unable to be established as safe and, therefore, the patient was subsequently sedated, placed on ventilator support. Consultation was placed to Dr. Callahan who saw the patient earlier in the day. The patient was treated for aspiration pneumonia as well as healthcare-acquired pneumonia as she did have acute infiltrates noted on initial chest x-ray. PAST MEDICAL HISTORY After chart review reveals ongoing IV drug abuse, prior history of endocarditis with valve surgery, prior history of DVT. PAST SURGICAL HISTORY Valve repair and/or surgical excision. I believe the patient was at [facility] for the same. SOCIAL HISTORY The patient uses IV drugs on a daily basis. Positive tobacco use. Positive alcohol use on a daily basis. FAMILY HISTORY Noncontributory, nonpertinent. ALLERGIES No known drug allergies. HOME MEDICATIONS None. REVIEW OF SYSTEMS Limited as the patient currently is intubated and on vent support, sedated. Unit #: [id number] #: [id number] Patient: JAMIE LANDEROS PHYSICAL EXAMINATION GENERAL APPEARANCE: The patient is a 26-year-old female currently on vent support, sedated, no acute distress. VITAL SIGNS: Temperature 97.4. Pulse 113. Respiratory rate 36. Blood pressure 113/78. HEENT: Head exam: Atraumatic, normocephalic. Ear exam: Tympanic membranes do not reveal any erythema or injection. NECK: Supple. CARDIOVASCULAR: S1, S2 without murmur. RESPIRATORY: Coarse rhonchi noted bilaterally. GASTROINTESTINAL: Nontender, nondistended. LOWER EXTREMITIES: No evidence of any lower extremity edema noted. DIAGNOSTIC STUDIES LABORATORY: Initial laboratory studies yield a CBC showing a white count of 25.8, hemoglobin of 8.0. Lactic acid 11.2. INR 10.0. Urine tox screen shows benzodiazepines, amphetamines as well as opioids. Repeat lactic acid level 8.0. IMAGING: CT angiogram chest performed for PE protocol reveals no pulmonary embolism but extensive bilateral infiltrates. Aspiration not excluded. INITIAL ADMISSION DIAGNOSES 1. Acute hypoxic/hypercapnic respiratory failure. 2. Drug overdose. 3. Prior history of infective endocarditis status post valve repair. 4. Ongoing IV drug abuse. 5. Noncompliance. 6. Supratherapeutic INR. 7. Current DVT on chronic anticoagulation with Coumadin. PLAN Admission. ICU placement. Consultation will be placed to collection coordinator. Dr. Callahan has already seen and evaluated the patient for further evaluation. Further hospital course to follow. Overall, the patient's prognosis at this point in time is poor, as she has very little insight into her chronic medical conditions. She did already undergo a 2-D echocardiogram this hospital admission which did reveal a bioprosthetic mitral valve with echogenic densities which were noted consistent with vegetations. Her ejection fraction is 50 to 55%. She also has a severely enlarged right atrial size. She has a bioprosthetic tricuspid valve which may also have vegetations which are present. We will consult Cardiology Services, Infectious Disease Services for IV antibiotic management. The patient ultimately may require transfer to [facility] for ongoing care and, as mentioned above, her prognosis fpc is poor. Dictated by Maria Luisa Mendoza/baljinder TD: 11/14/2016 19:01 JOB #: [id number] Unit #: [id number] #: [id number] Patient: JAMIE LANDEROS HISTORY AND PHYSICAL Page 1 of 1 X Luz Gee MD X HISTORY AND PHYSICAL
--- NOTE | ~2016-11-13 | EKG ---
PATIENT: JAMIE LANDEROS UNIT #: [id number] Ventricular Rate: 128 BPM Atrial Rate: 64 BPM QRS Duration: 86 ms Q-T Interval: 430 ms QTC Calculation(Bezet): 627 ms Calculated R [place]: 65 degrees Calculated T [place]: 58 degrees Diagnosis Line: Sinus tachycardia Diagnosis Line: Low voltage QRS Diagnosis Line: Incomplete right bundle branch block Diagnosis Line: T wave abnormality, consider anterior ischemia Diagnosis Line: Abnormal ECG Diagnosis Line: When compared with ECG of 22-NOV-2015 05:34, Diagnosis Line: T wave inversion now evident in Anterior leads Diagnosis Line: Confirmed by DESHAWN SANCHES MD ([id number]) on 11/13/2016 Diagnosis Line: 6:36:43 PM INTERPRETING MD: MYRON MARTELL
--- NOTE | ~2016-11-13 | CO ---
Unit #: [id number] #: [id number] Patient: JAMIE LANDEROS [id number] [address] [place], [place] [address] [id number] I MR#: [id number] NAME: JAMIE LANDEROS ROOM: [facility] Age: 26 Sex: F Admission Date: 11/13/2016 : 1990 Attending Physician: Luz Gee M.D. Primary Care Physician: No Primary Care Physician CONSULTATION REPORT REASON FOR CONSULTATION Respiratory failure and shock. CHIEF COMPLAINT AND HISTORY OF PRESENT ILLNESS This patient basically is a 26-year-old female who was admitted for shortness of breath and the patient has not been feeling well, according to the records, for a few days and came in with a complaint of shortness of breath and was intubated by the ER physician. She was in shock and I am seeing the patient at bedside, currently sedated and intubated. PAST MEDICAL HISTORY Endocarditis. SOCIAL HISTORY Positive for substance abuse. FAMILY HISTORY None as per record. ALLERGIES No known drug allergies. MEDICATION As per MAR, has been reviewed. REVIEW OF SYSTEMS Unobtainable. PHYSICAL EXAMINATION VITAL SIGNS: Temperature 98. Pulse 100. Respiration 31. Blood pressure 106/67. NEUROLOGIC: Sedated, intubated. CARDIOVASCULAR: S1+S2. RESPIRATORY: Bilateral mild rhonchi. GASTROTINTESTINAL: Nontender. Soft. Bowel sounds positive. EXTREMITIES: No edema. DIAGNOSTIC STUDIES LABORATORY: Blood gas: pH 7.34, pCO2 54, pO2 54, sats 84 and 100%, PEEP 10. Glucose 169, sodium 128, potassium 3.6, bicarb 14. INR 3.3. White count 19, hemoglobin 7.9, hematocrit 24, platelet count 178. ASSESSMENT AND PLAN Acute respiratory failure, infective endocarditis, septic shock, Unit #: [id number] #: [id number] Patient: JAMIE LANDEROS right-sided pneumothorax, ARDS, critically ill patient. The plan is to continue ventilator support, broad-spectrum IV antibiotic, IV pressor, 2-D echo, troponin, Infectious Disease consultation and we will continue to monitor in the intensive care unit. Please see orders for detailed plan. Dictated by... Brandi Callahan M.D. Sagar TD: 11/13/2016 17:31 JOB #: [id number] CONSULTATION REPORT Page 1 of 1 X Brandi Callahan MD CONSULTATION REPORT
--- NOTE | ~2016-11-13 | CR7 ---
[facility] A Service of [facility] RADIOLOGY TEXT RESULTS PATIENT: JAM[facility]ANDEROS [facility] [birth year] UNIT #: [id number] AGE: [address]: Luz Gee MD SEX: F ORDER DR: [id number] [facility] [address] [place], [place] [address] [id number] I MR#: [id number] Acc #: [id number] NAME: JAMIE LANDEROS : 1990 SEX: F STUDY DATE/TIME: 11/16/2016 13:10 UNIT: [facility]CU3 ROOM: [facility] STUDY DESCRIPTION: CR Abdomen Single AP View Attending Physician: Luz Gee M.D. Ordering Physician: Brandi Callahan M.D. Primary Care Physician: No Primary Care Physician MEDICAL IMAGING REPORT This report is preliminary unless electronic signature is present EXAM Portable AP view of the abdomen COMPARISON AP view of the chest on the same date at 13:06 p.m. as well as AP views the abdomen 11/16/2016 at 1:05 p.m. and 12/02/2015. INDICATION 26-year-old female post feeding tube placement as well as post Che catheter placement for bladder distension today. FINDINGS New catheter tip terminates over the midline and lower pelvis. This appears grossly adequate positioned. There is a paucity of bowel gas. There are no abnormally dilated bowel loops. There is calcification of the left pelvis. This area of the pelvis was not included on prior radiographs. This may either represent a pelvic phlebolith. An obstructive distal left ureteral calculus cannot be excluded. Skin robles are noted over the left groin region. Weighted feeding tube tip terminates in the stomach. IMPRESSION 1. Weighted feeding tube tip terminates in the stomach. There is a new Che catheter, the tip of which projects over the midline lower pelvis, possibly within the bladder. There is also a calculus in the left pelvis which may reflect a phlebolith but this is of uncertain stability given this is not included in the field of view on prior imaging. This measures up to 4 mm and could reflect a distal obstructing ureteral calculus in the appropriate clinical setting. 2. No evidence of bowel obstruction. [facility] A Service of [facility] & [facility] RADIOLOGY TEXT RESULTS PATIENT: JAMIE LANDEROS LOCATION: [facility] CICCU3-20 : [birth year] UNIT #: [id number] AGE: [address]: Luz Gee MD SEX: F ORDER DR: Dictated by... Kalen Moon M.D. THIS IS AN ELECTRONICALLY VERIFIED REPORT Kalen Moon M.D. at 11/16/2016 5:49 PM ANDER/ever TD: 11/16/2016 15:39 JOB #: [id number] MEDICAL IMAGING REPORT Page 1 of 1 COPY
--- NOTE | ~2016-11-13 | US88 ---
[facility] A Service of [facility] & [facility] RADIOLOGY TEXT RESULTS PATIENT: JAMIE LANDEROS [address] [birth year] UNIT #: [id number] AGE: [address]: Luz Gee MD SEX: F ORDER DR: [id number] [facility] [address] [facility] [facility]. [place], [place] [address] [id number] I MR#: [id number] Acc #: [id number] NAME: JAMIE LANDEROS : 1990 SEX: F STUDY DATE/TIME: 11/16/2016 18:14 [facility] STUDY DESCRIPTION: US Liver or Hepatic Attending Physician: Luz Gee M.D. Ordering Physician: Tho Major M.D. Primary Care Physician: No Primary Care Physician MEDICAL IMAGING REPORT This report is preliminary unless electronic signature is present EXAM Liver ultrasound 11/16/2016 INDICATIONS Elevated liver function tests. Acute renal injury. Overdose patient; decreased urine output. TECHNIQUE Sonographic imaging of the liver was performed. COMPARISON Correlation is made with renal ultrasound 11/16/2016 FINDINGS The pancreas is prominent. There is no peripancreatic fluid or focal pancreatic mass in the field of view. Correlate with amylase and lipase levels to exclude acute pancreatitis in the appropriate clinical context. Probable small right effusion. The liver measures 15.7 cm long axis. There is no intrahepatic ductal dilatation or focal liver mass. The enhancing lesion on the prior PE protocol chest CT has no correlate on ultrasound. Please see the prior CT report for further details. Small amount of perihepatic ascites present. Main portal vein patent with appropriate directional flow and measures a centimeter maximum diameter. There is pulsatility of flow in the main portal vein, which is nonspecific. The right kidney is nonobstructed. It measures approximately 10.7 x 4.1 x 5 cm. There is perinephric fluid present, as well. The gallbladder demonstrates no shadowing stone, but there is sludge within the lumen. No sonographic Zamudio's sign was described by the technologist. However, the gallbladder wall is thickened up to at least 7 mm, and there is pericholecystic fluid or gallbladder wall edema present. [facility] A Service of [facility] & [facility] RADIOLOGY TEXT RESULTS PATIENT: JAMIE LANDEROS LOCATION: [facility] CICCU3-20 : [birth year] UNIT #: [id number] AGE: [address]: Luz Gee MD SEX: F ORDER DR: Gallbladder wall thickening is a nonspecific finding on ultrasound and can be seen in multiple medical conditions including underlying hepatic dysfunction, right heart failure, and hypoproteinemia. However, it would be impossible to exclude the possibility of acute acalculous cholecystitis in the appropriate clinical context, and this should be correlated with patient's symptoms and laboratory data. HIDA scan could be performed for further assessment, if clinically desired or warranted. Extrahepatic common bile duct measures only about 1-2 mm. IMPRESSION 1. The gallbladder is abnormal, although there are no shadowing stones. The gallbladder wall is thickened and there is either gallbladder wall edema or fluid tracking into the gallbladder fossa. Gallbladder wall thickening is a nonspecific finding, as described above. This may reflect underlying hepatic dysfunction or other non-intrinsic gallbladder etiologies, but acalculous acute cholecystitis is not excluded on the basis of the study alone, and this should be correlated with patient presentation and laboratory data. HIDA scan could be performed for further assessment, if clinically desired or warranted. 2. No intra- or extrahepatic biliary duct dilatation. 3. A small amount of perihepatic ascites and probable small right pleural effusion. 4. There is no focal liver mass. 5. Prominence of the pancreas is nonspecific, but could potentially represent acute pancreatitis. Amylase and lipase levels would be complementary. 6. Courtesy call placed to the patient's nurse at the time of this dictation regarding the abnormal appearance of the gallbladder. STAT * RESULT Dictated by... Jim Branham M.D. THIS IS AN ELECTRONICALLY VERIFIED REPORT Jim Branham M.D. at 11/16/2016 10:52 PM SHERRI/traci TD: 11/16/2016 19:11 JOB #: [id number] MEDICAL IMAGING REPORT Page 1 of 1 COPY
--- NOTE | ~2016-11-13 | CR72 ---
[facility] A Service of [facility] RADIOLOGY TEXT RESULTS PATIENT: JAMIE LANDEROS LOCATION: [address] : [birth year] UNIT #: [id number] AGE: [address]: Luz Gee MD SEX: F ORDER DR: [id number] [facility] [address]. [place], [place] [address] [id number] I MR#: [id number] Acc #: [id number] NAME: JAMIE LANDEROS : 1990 SEX: F STUDY DATE/TIME: 11/14/2016 20:16 UNIT: [facility] ROOM: [facility] STUDY DESCRIPTION: CR Chest Single View Portable Attending Physician: Luz Gee M.D. Ordering Physician: Brandi Callahan M.D. Primary Care Physician: Primary Care Physician No MEDICAL IMAGING REPORT This report is preliminary unless electronic signature is present EXAM Portable chest. HISTORY 26-year-old female, increasing O2 demands. Shortness of air, congestion. COMPARISON 11/14/2016 at 1429 hours. FINDINGS Portable view of the chest demonstrates a right-sided chest tube which appears in relatively stable position. There is a right subclavian central line, med-kz-xmcxe SVC. Increasing bilateral alveolar infiltrates with increasing consolidation right lung in a perihilar distribution. I suspect this represents worsening pulmonary edema. Stable cardiomediastinal silhouette in this patient post median sternotomy and apparent tricuspid and mitral valve replacements for endocarditis. There is some lucency in the right lung base which I suspect is related to uninvolved or minimally involved right basilar lung as opposed to representing a loculated pneumothorax. A distinct pleural reflection is not identified and again no significant pneumothorax is seen. Findings discussed with nursing staff prior to this dictation. Dictated by... Asmita Whitney M.D. THIS IS AN ELECTRONICALLY VERIFIED REPORT Asmita Whitney M.D. at 11/15/2016 1:07 PM SELAM/leisa [facility] A Service of [facility] RADIOLOGY TEXT RESULTS PATIENT: JAMIE LANDEROS LOCATION: [facility] CICCU3-20 : [birth year] UNIT #: [id number] AGE: [address]: Luz Gee MD SEX: F ORDER DR: TD: 11/14/2016 23:02 JOB #: [id number] MEDICAL IMAGING REPORT Page 1 of 1 COPY
--- NOTE | ~2016-11-13 | CR72 ---
[facility] A Service of [facility] RADIOLOGY TEXT RESULTS PATIENT: JAMIE LANDEROS LOCATION: [facility] : [birth year] UNIT #: [id number] AGE: [address]: Hector Aden MD SEX: F ORDER DR: [id number] [facility] [address] [place], [place] [address] [id number] MR#: [id number] Acc #: [id number] NAME: JAMIE LANDEROS : 1990 SEX: F STUDY DATE/TIME: 11/13/2016 6:17 UNIT: [facility] ROOM: STUDY DESCRIPTION: CR Chest Single View Portable Attending Physician: Hector Aden Ordering Physician: Murphy Hernandez M.D. Primary Care Physician: Primary Care Physician No MEDICAL IMAGING REPORT This report is preliminary unless electronic signature is present EXAM Portable chest 11/13 INDICATIONS Endotracheal tube placement today. Shortness of air after overdose today. FINDINGS AP portable chest compared with earlier this morning. New endotracheal tube is well-positioned in the mid to lower trachea. Remainder of exam is stable in the short interval. No pneumothorax. Dictated by... Fidel Lindquist Jr., M.D. THIS IS AN ELECTRONICALLY VERIFIED REPORT Fidel Lindquist Jr., M.D. at 11/13/2016 10:00 AM RANDAL/kun TD: 11/13/2016 07:31 JOB #: [id number] MEDICAL IMAGING REPORT Page 1 of 1 COPY
--- NOTE | ~2016-11-13 | CO ---
Unit #: [id number] #: [id number] Patient: JAMIE LANDEROS [id number] [address] [place], [place] [address] [id number] MR#: [id number] NAME: JAMIE LANDEROS ROOM: [facility] Age: 26 Sex: F Admission Date: 11/13/2016 : 1990 Attending Physician: Luz Gee M.D. Primary Care Physician: Primary Care Physician No Consultation Date: 11/13/2016 CONSULTATION REPORT REASON FOR CONSULTATION Endocarditis. HISTORY OF PRESENT ILLNESS The patient is a 26-year-old female, who at this time is intubated and sedated. No family members at the bedside. All of the history is from the chart. Apparently, she was brought in, unresponsive, found to be overdosed, responded to Narcan and went into respiratory failure, requiring intubation, nurses admitted to ICU. Transthoracic echo was done, which showed bioprosthetic mitral and tricuspid valve both with vegetations. She started on vancomycin and Zosyn, got tobramycin and Zithromax in the ER. Infectious Disease consultation requested for further evaluation and antibiotic management. PAST MEDICAL HISTORY 1. IV drug use. 2. Methicillin sensitive Staphylococcus aureus. 3. Endocarditis, status post prosthetic valve replacement of mitral and tricuspid valve. 4. Psych history. SOCIAL HISTORY Remarkable for IV drug use. FAMILY HISTORY Noncontributory. ALLERGIES No known drug allergies. CURRENT MEDICATIONS List reviewed. Antibiotics include Zosyn and vancomycin plus one dose of tobramycin and one dose of azithromycin in the emergency room. PHYSICAL EXAMINATION GENERAL: Intubated and sedated. VITAL SIGNS: Temperature 98, pulse 100, respirations 31, blood pressure 106/67. HEENT: Unremarkable. NECK: Supple. CHEST: Clear to auscultation. HEART: Normal S1 and S2. ABDOMEN: Soft, nondistended, nontender. EXTREMITIES: Shows no edema. Unit #: [id number] #: [id number] Patient: JAMIE LANDEROS DIAGNOSTIC STUDIES IMAGING STUDIES: Chest x-ray shows bilateral infiltrates. CT angio negative for pulmonary embolism. LABORATORY RESULTS: BUN 15, creatinine 0.9. AST 31, ALT 24, alkaline phosphate is 84. WBC 19.8, was 25.8 upon admission; hemoglobin 7.9; platelets 178, 92% neutrophils. Tox screen positive for benzodiazepines, amphetamines, and opiates. Blood culture is pending. Back in 10/2015, had MSSA 2/2. ASSESSMENT 1. Drug overdose. 2. Respiratory failure. 3. 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 4. History of IV drug use. 5. History of Methicillin-sensitive Staphylococcus aureus sepsis with mitral and tricuspid valve endocarditis. PLAN At this time, I would go ahead and continue the patient on Zosyn, vancomycin, and start her on gentamicin 1 mg/kg IV q.8 hours. Have pharmacy to follow and rifampin 300 mg IV q.12 hours. Follow up on the results of cultures and adjust antibiotics accordingly. Overall prognosis is poor. I would recommend Dr. Gee for asking us to participate in the care of this patient. We will follow this patient along with you. Dictated by... Maria Luisa Wright TD: 11/14/2016 03:28 JOB #: [id number] CONSULTATION REPORT Page 1 of 1 X Marc Collins MD CONSULTATION REPORT
--- NOTE | ~2016-11-13 | CO ---
Unit #: [id number] #: [id number] Patient: JAMIE LANDEROS [id number] [address] [address] [id number] MR#: [id number] NAME: JAMIE LANDEROS ROOM: [facility] Age: 26 Sex: F Admission Date: 11/13/2016 : 1990 Attending Physician: Luz Gee M.D. Primary Care Physician: Tiffany Primary Care Physician Consultation Date: 11/14/2016 CONSULTATION REPORT REASON FOR CONSULTATION Respiratory failure, need for endotracheal intubation. CONSULTING PHYSICIAN Brandi Callahan M.D. CONSULTATION NOTE Patient is a 26-year-old woman who was admitted to the hospital on 11/13/2016 after a drug overdose and was found to be in ARDS with respiratory failure. At that time she was intubated in the emergency department and admitted for further care. Subsequently she has been found to have endocarditis. Today the decision was made that the patient was doing well enough to be extubated; however, the patient grew increasingly dyspneic and was again in respiratory distress, thus it was determined that she needed to be reintubated. Upon arriving to the patient's room, she was satting 86% on a nonrebreather mask. The patient was administered 20 mg of etomidate and cords were immediately visualized. A 7.5 tube was passed and passed the cords with direct visualization. A positive CO2 change and equal chest right and equal breath sounds on auscultation. Vent settings per respiratory therapy. The patient initially was very agitated after the intubation and was biting on the tube. She was given 100 mcg of Fentanyl and 5 mg of Versed for sedation, to facilitate respiratory therapy anchoring the tube. Further vent settings and management per the patient's primary team. Dictated by... Maria Luisa Navas/madelin TD: 11/15/2016 05:55 JOB #: [id number] Unit #: [id number] #: [id number] Patient: JAMIE LANDEROS CONSULTATION REPORT Page 1 of 1 X MaryMurphy Vora MD X CONSULTATION REPORT
[2016-11-13 07:11] LABS: BASOPHIL# 0.1 X10e3 (0-0.3); BASOPHIL% 0.5 % (0-2.5); EOSINOPHIL# 0.1 X10e3 (0-0.7); EOSINOPHIL% 0.4 % (0.0-7.0); HEMATOCRIT 27.2 % (35.0-45.0); LYMPHOCYTE# 3.3 X10e3 (1.0-3.5); LYMPHOCYTE% 12.7 % (17.0-45.0); MEAN CORPUSCULAR HEMOGLOBIN 30.3 PG (28-34); MEAN CORPUSCULAR HGB CONC 29.4 g/dL (30-36); MEAN PLATELET VOLUME 8.8 FL (6.5-11.5); MONOCYTE# 1.5 X10e3 (0-1.0); MONOCYTE% 5.6 % (3.0-12.0); NEUTROPHIL# 20.9 X10e3 (1.5-7.1); NEUTROPHIL% 80.8 % (40-75); PLATELET COUNT 262 X10e3 (140-420); RED BLOOD COUNT 2.64 X10e (3.90-5.30); RED CELL DISTRIBUTION WIDTH 17.6 % (11.0-15.5); WHITE BLOOD COUNT 25.8 X10e3 (4.0-10.5)
[2016-11-13 07:13] LABS: POC - CKMB 2.2 ng/mL (0.0-7.9); POC - TROPONIN <0.05 ng/mL (<=0.05)
[2016-11-13 07:13] LABS: DIFF IND YES
[2016-11-13 07:22] LABS: ARTERIAL BLD GAS O2 SATURATION 91.1 % (90.0-100.0); ARTERIAL BLOOD GAS CARBOXY HB 1.8 %sat (0.0-9.0); ARTERIAL BLOOD GAS HCO3 12.7 mmol/L; ARTERIAL BLOOD GAS MET HB 0.1 %sat (0.0-2.0); ARTERIAL BLOOD GAS PCO2 27.9 mmHg (35.0-45.0); ARTERIAL BLOOD GAS pH 7.267 (7.350-7.450)
[2016-11-13 07:23] LABS: ARTERIAL BLOOD GAS PO2 76.9 mmHg (80.0-100); ARTERIAL DRAW? YES
[2016-11-13 07:24] LABS: ARTERIAL BLOOD GAS ART SITE RIGHT FEMORAL; ARTERIAL BLOOD GAS VENT MODE A/C
[2016-11-13 07:30] LABS: PLATELET ESTIMATE NORMAL (NORMAL); POIKILOCYTOSIS MOD
[2016-11-13 07:40] LABS: ALBUMIN SERUM 2.6 g/dL (3.5-5.0); BILIRUBIN, DIRECT 0.4 mg/dL (0.0-0.2); BILIRUBIN,INDIRECT 0.9 mg/dL (0.0-0.9); BILIRUBIN,TOTAL 1.3 mg/dL (0.2-2.0); BUN/CREATININE RATIO 16.66; CALCIUM SERUM 8.1 mg/dL (8.4-10.2); CREATININE SERUM 0.9 mg/dL (0.6-1.4); GLOM FILT RATE Estimated 88.3 mL/min (>60); POTASSIUM 3.6 mmol/L (3.5-5.1); PROTEIN TOTAL SERUM 7.3 g/dL (6.0-8.3)
[2016-11-13 07:43] LABS: PROTHROMBIN TIME (PATIENT) 113.8 SECONDS (9.6-11.5)
[2016-11-13 10:26] LABS: ARTERIAL BLD GAS O2 SATURATION 96.2 % (90.0-100.0); ARTERIAL BLOOD GAS CARBOXY HB 1.7 %sat (0.0-9.0); ARTERIAL BLOOD GAS HCO3 24.7 mmol/L; ARTERIAL BLOOD GAS MET HB 0.6 %sat (0.0-2.0); ARTERIAL BLOOD GAS PCO2 38.1 mmHg (35.0-45.0); ARTERIAL BLOOD GAS PO2 99.5 mmHg (80.0-100); ARTERIAL BLOOD GAS pH 7.419 (7.350-7.450)
[2016-11-13 10:26] LABS: AMPHETAMINE POS (NEG); BARBITURATES NEG (NEG); BENZODIAZEPINES POS (NEG); COCAINE NEG (NEG); MARIJUANA NEG (NEG); OPIATES POS (NEG); TRICYCLIC ANTIDEPRESSANTS NEG (NEG); U METHADONE NEG (NEG)
[2016-11-13 10:27] LABS: ARTERIAL BLOOD GAS ART SITE LEFT FEMORAL; ARTERIAL BLOOD GAS VENT MODE A/C; ARTERIAL DRAW? YES
[2016-11-13 10:32] LABS: BASOPHIL# 0.1 X10e3 (0-0.3); BASOPHIL% 0.4 % (0-2.5); EOSINOPHIL% 0.1 % (0.0-7.0); HEMATOCRIT 22.5 % (35.0-45.0); LYMPHOCYTE# 1.1 X10e3 (1.0-3.5); LYMPHOCYTE% 4.9 % (17.0-45.0); MEAN CORPUSCULAR HEMOGLOBIN 30.5 PG (28-34); MEAN CORPUSCULAR HGB CONC 31.1 g/dL (30-36); MEAN PLATELET VOLUME 8.8 FL (6.5-11.5); MONOCYTE# 0.9 X10e3 (0-1.0); MONOCYTE% 4.1 % (3.0-12.0); NEUTROPHIL# 20.5 X10e3 (1.5-7.1); NEUTROPHIL% 90.5 % (40-75); PLATELET COUNT 218 X10e3 (140-420); RED CELL DISTRIBUTION WIDTH 16.8 % (11.0-15.5); WHITE BLOOD COUNT 22.6 X10e3 (4.0-10.5)
[2016-11-13 10:41] LABS: DIFF IND NO; MEAN CELL VOLUME 97.9 FL (83-96)
[2016-11-13 14:21] LABS: INR 3.3; PARTIAL THROMBOPLASTIN TIME 42.9 SECONDS (23.5-31.3)
[2016-11-13 14:52] LABS: PROTHROMBIN TIME (PATIENT) 35.9 SECONDS (9.6-11.5)
[2016-11-13 15:03] LABS: BASOPHIL% 0.2 % (0-2.5); HEMATOCRIT 24.9 % (35.0-45.0); HEMOGLOBIN 7.9 gm/dL (12.0-16.0); LYMPHOCYTE# 0.8 X10e3 (1.0-3.5); MEAN CELL VOLUME 96.6 FL (83-96); MEAN CORPUSCULAR HEMOGLOBIN 30.8 PG (28-34); MEAN CORPUSCULAR HGB CONC 31.9 g/dL (30-36); MEAN PLATELET VOLUME 8.7 FL (6.5-11.5); MONOCYTE# 0.6 X10e3 (0-1.0); MONOCYTE% 3.1 % (3.0-12.0); NEUTROPHIL# 18.2 X10e3 (1.5-7.1); NEUTROPHIL% 92.7 % (40-75); PLATELET COUNT 178 X10e3 (140-420); RED BLOOD COUNT 2.58 X10e (3.90-5.30); RED CELL DISTRIBUTION WIDTH 16.5 % (11.0-15.5); WHITE BLOOD COUNT 19.6 X10e3 (4.0-10.5)
[2016-11-13 15:05] LABS: DIFF IND YES
[2016-11-13 15:35] LABS: ARTERIAL BLD GAS O2 SATURATION 84.4 % (90.0-100.0); ARTERIAL BLOOD GAS CARBOXY HB 1.7 %sat (0.0-9.0); ARTERIAL BLOOD GAS HCO3 29.2 mmol/L; ARTERIAL BLOOD GAS MET HB 0.6 %sat (0.0-2.0); ARTERIAL BLOOD GAS PO2 54.7 mmHg (80.0-100); ARTERIAL BLOOD GAS pH 7.342 (7.350-7.450); ARTERIAL DRAW? YES
[2016-11-13 15:36] LABS: ARTERIAL BLOOD GAS ART SITE LEFT FEMORAL; ARTERIAL BLOOD GAS VENT MODE A/C
[2016-11-13 15:53] LABS: PLATELET ESTIMATE NORMAL (NORMAL)
[2016-11-13 15:54] LABS: ACANTHOCYTES PRESENT; ANISOCYTOSIS MOD; POIKILOCYTOSIS SL; TEAR DROP CELLS PRESENT
[2016-11-14 04:20] LABS: ARTERIAL BLD GAS O2 SATURATION 98.3 % (90.0-100.0); ARTERIAL BLOOD GAS CARBOXY HB 1.2 %sat (0.0-9.0); ARTERIAL BLOOD GAS HCO3 38.1 mmol/L; ARTERIAL BLOOD GAS MET HB 0.6 %sat (0.0-2.0); ARTERIAL BLOOD GAS PCO2 47.8 mmHg (35.0-45.0)
[2016-11-14 04:31] LABS: ARTERIAL BLOOD GAS ALLEN TEST NORMAL; ARTERIAL BLOOD GAS ART SITE LEFT RADIAL; ARTERIAL BLOOD GAS DELIVERY VENT; ARTERIAL BLOOD GAS VENT MODE A/C; ARTERIAL DRAW? YES
[2016-11-14 06:05] LABS: BASOPHIL% 0.1 % (0-2.5); HEMATOCRIT 27.9 % (35.0-45.0); MEAN CELL VOLUME 95.8 FL (83-96); MEAN CORPUSCULAR HGB CONC 32.3 g/dL (30-36); MEAN PLATELET VOLUME 9.5 FL (6.5-11.5); MONOCYTE# 0.8 X10e3 (0-1.0); MONOCYTE% 5.7 % (3.0-12.0); NEUTROPHIL# 11.8 X10e3 (1.5-7.1); NEUTROPHIL% 87.2 % (40-75); PLATELET COUNT 136 X10e3 (140-420); RED BLOOD COUNT 2.91 X10e (3.90-5.30); RED CELL DISTRIBUTION WIDTH 16.1 % (11.0-15.5); WHITE BLOOD COUNT 13.5 X10e3 (4.0-10.5)
[2016-11-14 06:08] LABS: DIFF IND NO
[2016-11-14 07:04] LABS: ALBUMIN SERUM 2.3 g/dL (3.5-5.0); BILIRUBIN,TOTAL 2.6 mg/dL (0.2-2.0); BUN/CREATININE RATIO 37.5; CALCIUM SERUM 6.9 mg/dL (8.4-10.2); CREATININE SERUM 0.4 mg/dL (0.6-1.4); GLOM FILT RATE Estimated 143.8 mL/min (>60); PROTEIN TOTAL SERUM 5.7 g/dL (6.0-8.3)
[2016-11-14 07:42] LABS: INR 2.2; PROTHROMBIN TIME (PATIENT) 23.4 SECONDS (9.6-11.5)
[2016-11-14 08:38] LABS: ARTERIAL BLD GAS O2 SATURATION 93.5 % (90.0-100.0); ARTERIAL BLOOD GAS CARBOXY HB 1.5 %sat (0.0-9.0); ARTERIAL BLOOD GAS HCO3 40.1 mmol/L; ARTERIAL BLOOD GAS MET HB 0.6 %sat (0.0-2.0); ARTERIAL BLOOD GAS PCO2 49.6 mmHg (35.0-45.0); ARTERIAL BLOOD GAS pH 7.516 (7.350-7.450)
[2016-11-14 08:40] LABS: ARTERIAL BLOOD GAS ART SITE LEFT BRACHIAL; ARTERIAL BLOOD GAS PO2 72.2 mmHg (80.0-100); ARTERIAL DRAW? YES
[2016-11-14 08:41] LABS: ARTERIAL BLOOD GAS DELIVERY VENT; ARTERIAL BLOOD GAS VENT MODE CPAP
[2016-11-14 14:36] LABS: ARTERIAL BLOOD GAS ALLEN TEST NORMAL; ARTERIAL BLOOD GAS ART SITE LEFT RADIAL; ARTERIAL BLOOD GAS CARBOXY HB 1.8 %sat (0.0-9.0); ARTERIAL BLOOD GAS DELIVERY NASAL CANNULA; ARTERIAL BLOOD GAS HCO3 41.7 mmol/L; ARTERIAL BLOOD GAS MET HB 0.7 %sat (0.0-2.0); ARTERIAL BLOOD GAS PO2 53.5 mmHg (80.0-100); ARTERIAL BLOOD GAS pH 7.556 (7.350-7.450); ARTERIAL DRAW? YES
[2016-11-14 16:11] LABS: ARTERIAL BLD GAS O2 SATURATION 97.3 % (90.0-100.0); ARTERIAL BLOOD GAS ALLEN TEST NORMAL; ARTERIAL BLOOD GAS ART SITE RIGHT RADIAL; ARTERIAL BLOOD GAS CARBOXY HB 1.6 %sat (0.0-9.0); ARTERIAL BLOOD GAS DELIVERY OXYMIZER; ARTERIAL BLOOD GAS HCO3 42.8 mmol/L; ARTERIAL BLOOD GAS MET HB 0.7 %sat (0.0-2.0); ARTERIAL BLOOD GAS PCO2 43.7 mmHg (35.0-45.0); ARTERIAL BLOOD GAS pH 7.599 (7.350-7.450); ARTERIAL DRAW? YES
[2016-11-14 20:21] LABS: ARTERIAL BLD GAS O2 SATURATION 91.8 % (90.0-100.0); ARTERIAL BLOOD GAS CARBOXY HB 2.1 %sat (0.0-9.0); ARTERIAL BLOOD GAS MET HB 1.1 %sat (0.0-2.0); ARTERIAL BLOOD GAS PCO2 44.6 mmHg (35.0-45.0)
[2016-11-14 20:23] LABS: ARTERIAL BLOOD GAS ART SITE LEFT BRACHIAL; ARTERIAL BLOOD GAS DELIVERY OXYMIZER; ARTERIAL BLOOD GAS PO2 61.6 mmHg (80.0-100); ARTERIAL BLOOD GAS pH 7.612 (7.350-7.450); ARTERIAL DRAW? YES
[2016-11-14 23:55] LABS: ARTERIAL BLD GAS O2 SATURATION 98.6 % (90.0-100.0); ARTERIAL BLOOD GAS CARBOXY HB 1.3 %sat (0.0-9.0); ARTERIAL BLOOD GAS HCO3 41.8 mmol/L; ARTERIAL BLOOD GAS MET HB 0.8 %sat (0.0-2.0); ARTERIAL BLOOD GAS pH 7.567 (7.350-7.450)
[2016-11-14 23:56] LABS: ARTERIAL BLOOD GAS ART SITE LEFT BRACHIAL; ARTERIAL BLOOD GAS DELIVERY VENT; ARTERIAL BLOOD GAS VENT MODE A/C; ARTERIAL DRAW? YES
[2016-11-15 04:00] LABS: ARTERIAL BLD GAS O2 SATURATION 93.3 % (90.0-100.0); ARTERIAL BLOOD GAS CARBOXY HB 1.5 %sat (0.0-9.0); ARTERIAL BLOOD GAS HCO3 39.9 mmol/L; ARTERIAL BLOOD GAS MET HB 0.6 %sat (0.0-2.0); ARTERIAL BLOOD GAS PCO2 40.8 mmHg (35.0-45.0); ARTERIAL BLOOD GAS pH 7.599 (7.350-7.450)
[2016-11-15 04:09] LABS: ARTERIAL BLOOD GAS ART SITE LEFT BRACHIAL; ARTERIAL BLOOD GAS DELIVERY VENT; ARTERIAL BLOOD GAS PO2 65.4 mmHg (80.0-100); ARTERIAL BLOOD GAS VENT MODE AC; ARTERIAL DRAW? YES
[2016-11-15 05:30] LABS: BASOPHIL# 0.1 X10e3 (0-0.3); BASOPHIL% 0.3 % (0-2.5); EOSINOPHIL% 0.1 % (0.0-7.0); HEMATOCRIT 29.5 % (35.0-45.0); HEMOGLOBIN 9.4 gm/dL (12.0-16.0); LYMPHOCYTE# 3.2 X10e3 (1.0-3.5); LYMPHOCYTE% 16.4 % (17.0-45.0); MEAN CELL VOLUME 97.3 FL (83-96); MEAN CORPUSCULAR HGB CONC 31.9 g/dL (30-36); MEAN PLATELET VOLUME 9.2 FL (6.5-11.5); MONOCYTE# 0.5 X10e3 (0-1.0); MONOCYTE% 2.4 % (3.0-12.0); NEUTROPHIL% 80.8 % (40-75); PLATELET COUNT 159 X10e3 (140-420); RED BLOOD COUNT 3.03 X10e (3.90-5.30); WHITE BLOOD COUNT 19.8 X10e3 (4.0-10.5)
[2016-11-15 05:32] LABS: DIFF IND YES
[2016-11-15 06:11] LABS: ANISOCYTOSIS MOD; HYPOCHROMIA SL; PLATELET ESTIMATE NORMAL (NORMAL); POLYCHROMASIA SL; SCHISTOCYTES PRESENT
[2016-11-15 06:40] LABS: ALBUMIN SERUM 2.3 g/dL (3.5-5.0); BUN/CREATININE RATIO 27.14; CALCIUM SERUM 7.4 mg/dL (8.4-10.2); CREATININE SERUM 0.7 mg/dL (0.6-1.4); GLOM FILT RATE Estimated 119.6 mL/min (>60); MAGNESIUM 1.5 mg/dL (1.6-3.0); POTASSIUM 3.1 mmol/L (3.5-5.1); PROTEIN TOTAL SERUM 5.6 g/dL (6.0-8.3)
[2016-11-15 07:38] LABS: INR 1.6; PROTHROMBIN TIME (PATIENT) 16.7 SECONDS (9.6-11.5)
[2016-11-15 15:46] LABS: BODY FLUID SOURCE BRONCHIAL LAVAGE
[2016-11-15 15:47] LABS: BODY FLUID APPEARANCE BLOODY
[2016-11-15 16:35] LABS: CALCIUM SERUM 7.8 mg/dL (8.4-10.2); CREATININE SERUM 0.6 mg/dL (0.6-1.4); GLOM FILT RATE Estimated 125.8 mL/min (>60); POTASSIUM 3.5 mmol/L (3.5-5.1)
[2016-11-16 04:32] LABS: ARTERIAL BLD GAS O2 SATURATION 97.6 % (90.0-100.0); ARTERIAL BLOOD GAS CARBOXY HB 1.7 %sat (0.0-9.0); ARTERIAL BLOOD GAS MET HB 0.7 %sat (0.0-2.0); ARTERIAL BLOOD GAS PCO2 33.8 mmHg (35.0-45.0); ARTERIAL BLOOD GAS pH 7.511 (7.350-7.450)
[2016-11-16 04:37] LABS: ARTERIAL DRAW? YES
[2016-11-16 04:38] LABS: ARTERIAL BLOOD GAS ART SITE RIGHT BRACHIAL; ARTERIAL BLOOD GAS DELIVERY VENT; ARTERIAL BLOOD GAS VENT MODE AC
[2016-11-16 05:44] LABS: BASOPHIL% 0.2 % (0-2.5); EOSINOPHIL% 0.1 % (0.0-7.0); HEMOGLOBIN 9.7 gm/dL (12.0-16.0); LYMPHOCYTE# 2.1 X10e3 (1.0-3.5); LYMPHOCYTE% 12.4 % (17.0-45.0); MEAN CELL VOLUME 98.7 FL (83-96); MEAN CORPUSCULAR HGB CONC 31.4 g/dL (30-36); MEAN PLATELET VOLUME 9.6 FL (6.5-11.5); MONOCYTE# 0.5 X10e3 (0-1.0); MONOCYTE% 3.2 % (3.0-12.0); NEUTROPHIL# 13.9 X10e3 (1.5-7.1); NEUTROPHIL% 84.1 % (40-75); PLATELET COUNT 151 X10e3 (140-420); RED BLOOD COUNT 3.14 X10e (3.90-5.30); RED CELL DISTRIBUTION WIDTH 17.5 % (11.0-15.5); WHITE BLOOD COUNT 16.5 X10e3 (4.0-10.5)
[2016-11-16 05:53] LABS: DIFF IND NO
[2016-11-16 06:35] LABS: ALBUMIN SERUM 2.2 g/dL (3.5-5.0); BUN/CREATININE RATIO 33.75; CALCIUM SERUM 7.9 mg/dL (8.4-10.2); CREATININE SERUM 0.8 mg/dL (0.6-1.4); GLOM FILT RATE Estimated 101.8 mL/min (>60); POTASSIUM 4.2 mmol/L (3.5-5.1); PROTEIN TOTAL SERUM 5.8 g/dL (6.0-8.3)
[2016-11-16 06:38] LABS: BILIRUBIN,TOTAL 7.3 mg/dL (0.2-2.0)
[2016-11-16 14:45] LABS: BASOPHIL# 0.1 X10e3 (0-0.3); BASOPHIL% 0.5 % (0-2.5); EOSINOPHIL# 0.1 X10e3 (0-0.7); EOSINOPHIL% 0.7 % (0.0-7.0); HEMATOCRIT 33.3 % (35.0-45.0); LYMPHOCYTE% 9.7 % (17.0-45.0); MEAN CORPUSCULAR HEMOGLOBIN 31.1 PG (28-34); MEAN PLATELET VOLUME 9.5 FL (6.5-11.5); MONOCYTE% 4.9 % (3.0-12.0); NEUTROPHIL# 17.7 X10e3 (1.5-7.1); NEUTROPHIL% 84.2 % (40-75); PLATELET COUNT 145 X10e3 (140-420); RED BLOOD COUNT 3.21 X10e (3.90-5.30); RED CELL DISTRIBUTION WIDTH 18.5 % (11.0-15.5)
[2016-11-16 14:46] LABS: MEAN CELL VOLUME 103.7 FL (83-96)
[2016-11-16 14:47] LABS: DIFF IND NO
[2016-11-16 15:31] LABS: ALBUMIN SERUM 2.1 g/dL (3.5-5.0); BILIRUBIN,TOTAL 9.1 mg/dL (0.2-2.0); BUN/CREATININE RATIO 27.14; CREATININE SERUM 1.4 mg/dL (0.6-1.4); GLOM FILT RATE Estimated 51.7 mL/min (>60); POTASSIUM 5.2 mmol/L (3.5-5.1); PROTEIN TOTAL SERUM 5.9 g/dL (6.0-8.3)
[2016-11-16 17:06] LABS: ARTERIAL BLD GAS O2 SATURATION 93.9 % (90.0-100.0); ARTERIAL BLOOD GAS CARBOXY HB 1.3 %sat (0.0-9.0); ARTERIAL BLOOD GAS HCO3 10.8 mmol/L; ARTERIAL BLOOD GAS MET HB 0.9 %sat (0.0-2.0); ARTERIAL BLOOD GAS PCO2 33.3 mmHg (35.0-45.0)
[2016-11-16 17:08] LABS: ARTERIAL BLOOD GAS ART SITE LEFT BRACHIAL; ARTERIAL BLOOD GAS DELIVERY VENT; ARTERIAL BLOOD GAS VENT MODE AC; ARTERIAL BLOOD GAS pH 7.118 (7.350-7.450); ARTERIAL DRAW? YES
[2016-11-16 18:42] LABS: ARTERIAL BLD GAS O2 SATURATION 94.4 % (90.0-100.0); ARTERIAL BLOOD GAS CARBOXY HB 1.8 %sat (0.0-9.0); ARTERIAL BLOOD GAS HCO3 14.6 mmol/L; ARTERIAL BLOOD GAS MET HB 1.2 %sat (0.0-2.0); ARTERIAL BLOOD GAS PCO2 34.2 mmHg (35.0-45.0); ARTERIAL BLOOD GAS pH 7.239 (7.350-7.450)
[2016-11-16 18:47] LABS: ARTERIAL BLOOD GAS ALLEN TEST NORMAL; ARTERIAL BLOOD GAS ART SITE LEFT BRACHIAL; ARTERIAL BLOOD GAS VENT MODE AC; ARTERIAL DRAW? YES
[2016-11-16 20:22] LABS: BUN/CREATININE RATIO 23.52; CALCIUM SERUM 7.2 mg/dL (8.4-10.2); CREATININE SERUM 1.7 mg/dL (0.6-1.4); GLOM FILT RATE Estimated 40.9 mL/min (>60); POTASSIUM 5.1 mmol/L (3.5-5.1)
== END 2016-11-17 01:30 | disposition expired | DRG 853 ==
LOC: CED 08:52 → CEDOF 09:26 → CICCU3 16:17 → CEDOF 11-16 09:48 → CICCU3 11-16 09:50
PROVIDERS: Emergency Medicine; Family Medicine; Internal Medicine; Internal Medicine Cardiovascular Disease; Internal Medicine Nephrology; Nurse Practitioner; Nurse Practitioner Family
PROC: 05H533Z Insertion of Infusion Device into Right Subclavian Vein, Percutaneous Approach (ICD-10-PCS; principal; 2016-11-13)
PROC: 0W9930Z Drainage of Right Pleural Cavity with Drainage Device, Percutaneous Approach (ICD-10-PCS; 2016-11-13)
PROC: 0BH17EZ Insertion of Endotracheal Airway into Trachea, Via Natural or Artificial Opening (ICD-10-PCS; 2016-11-13)
PROC: 5A1945Z Respiratory Ventilation, 24-96 Consecutive Hours (ICD-10-PCS; 2016-11-13)
PROC: 30233K1 Transfusion of Nonautologous Frozen Plasma into Peripheral Vein, Percutaneous Approach (ICD-10-PCS; 2016-11-13)
PROC: 30233N1 Transfusion of Nonautologous Red Blood Cells into Peripheral Vein, Percutaneous Approach (ICD-10-PCS; 2016-11-13)
PROC: 0B968ZX Drainage of Right Lower Lobe Bronchus, Via Natural or Artificial Opening Endoscopic, Diagnostic (ICD-10-PCS; 2016-11-15)
PROC: 0B9 Respiratory System, Drainage (ICD-10-PCS; 2016-11-15 13:15)
PROC: 30233J1 Transfusion of Nonautologous Serum Albumin into Peripheral Vein, Percutaneous Approach (ICD-10-PCS; 2016-11-16)
DX: A41.9 Sepsis, unspecified organism (principal); J96.21 Acute and chronic respiratory failure with hypoxia; N17.0 Acute kidney failure with tubular necrosis; R65.21 Severe sepsis with septic shock; I33.0 Acute and subacute infective endocarditis; J18.9 Pneumonia, unspecified organism; B49 Unspecified mycosis; J96.22 Acute and chronic respiratory failure with hypercapnia; J93.9 Pneumothorax, unspecified; T65.91XA Toxic effect of unspecified substance, accidental (unintentional), initial encounter; Z95.2 Presence of prosthetic heart valve; F17.210 Nicotine dependence, cigarettes, uncomplicated; I08.1 Rheumatic disorders of both mitral and tricuspid valves; R33.9 Retention of urine, unspecified; T40.1X1A Poisoning by heroin, accidental (unintentional), initial encounter; R34 Anuria and oliguria
CPT/HCPCS: 31500; 36415; 36600; 51702; 71010; 71275; 74000; 76705; 76770; 80048; 80053; 80076; 80170; 80307; 82553; 82803; 82947; 83605; 83735; 84484; 85025; 85610; 85730; 86850; 86900; 86901; 86923; 87040; 87070; 87077; 87102; 87106; 87116; 87181; 87205; 87206; 87252; 87254; 87278; 88108; 88305; 88312; 89051; 93005; 93306; 94002; 94003; 94760; 96365; 96375; 99285; 99291; J0171; J0330; J0456; J0637; J1170; J1580; J1720; J1940; J2248; J2250; J2270; J2370; J2543; J2930; J3010; J3260; J3370; J3430; J3475; J7060; P9016; P9047; P9059; Q9967